=== PATIENT | male | born 1950 | race Caucasian/White ===

== ENCOUNTER 2017-10-13 10:33 | Observation (INO) | payer MEDICARE ==
[~2017-10-13] VITALS: Ht 172.7 cm; Wt 114.8 kg
[2017-10-13] VITALS (8 sets, daily range): BP systolic 126–151; BP diastolic 47–82
[2017-10-13 11:04] LABS: HEMATOCRIT 36.5 % (42.0-52.0); HEMOGLOBIN 12.1 gm/dL (14.0-18.0); MCHC 33.2 g/dL (28.0-37.0); MCV 90.3 fL (80.0-100.0); MPV 8.1 fl. (7.2-11.1); RBC 4.05 mil/uL (4.50-6.00); RDW-CV 13.2 % (10.5-14.5); WBC 10.8 thou/uL (4.0-11.0)
[2017-10-13 11:14] LABS: ANION GAP 7 mmol/L (7-16); APTT 36.3 Seconds (25.0-31.3); BUN 26 mg/dL (7-18); CALCIUM 8.9 mg/dL (8.5-10.1); CHLORIDE 102 mmol/L (98-107); CO2 27 mmol/L (21-32); CREATININE 1.3 mg/dL (0.6-1.3); GLUCOSE 154 mg/dL (70-99); POTASSIUM 4.2 mmol/L (3.5-5.1); PROTIME 10.2 Seconds (9.20-11.50); SODIUM 136 mmol/L (136-145)
[2017-10-13 11:19] LABS: ALBUMIN 3.2 g/dL (3.4-5.0); ALKALINE PHOSPHATASE 89 U/L (46-116); CHOLESTEROL 120 mg/dL (<200); HDL CHOLESTEROL 39 mg/dL (>40); LDL CHOLESTEROL 61 mg/dL (<100); SGOT 22 U/L (15-37); SGPT 14 U/L (30-65); TC:HDL 3.1 Ratio (Not establshd); TOTAL BILIRUBIN 0.4 mg/dL (<0.1-1.0); TOTAL PROTEIN 7.6 g/dL (6.4-8.2); TRIGLYCERIDE 100 mg/dL (<150); VLDL 20 mg/dL (<40)
[2017-10-13 11:24] LABS: SERUM ASSESSMENT Clear
[2017-10-13] MEDS ORDERED: LASIX 20 MG TAB20 MG PO (11:24)
[2017-10-13] MEDS ORDERED: LEVEMIR100 UNIT/1 SUBQ (11:24)
[2017-10-13] MEDS ORDERED: VICTOZA0.6 MG/0.1 SUBQ (11:24)
[2017-10-13] MEDS ORDERED: NITROGLYCERIN0.4 MG SUBLING (11:25)
[2017-10-13] MEDS ORDERED: ASPIR 8181 MG PO (11:26)
[2017-10-13] MEDS ORDERED: CRESTOR20 MG PO (11:26)
[2017-10-13] MEDS ORDERED: FLOMAX0.4 MG PO (11:26)
[2017-10-13] MEDS ORDERED: CENTRUM SILVER1 EAC2 PO (11:27)
[2017-10-13] MEDS ORDERED: NORCO 5-325 TA1 EACH PO (11:27)
[2017-10-13] MEDS ORDERED: COZAAR 25 MG TA25 M1 PO (11:28)
[2017-10-13] MEDS ORDERED: KLOR-CON 1010 MEQ PO (11:28)
[2017-10-13] MEDS ORDERED: CELEBREX 200 M200 M1 PO (11:29)
[2017-10-13] MEDS ORDERED: OMEGA-31000 M1 PO (11:30)
--- NOTE | 2017-10-13 16:30 | EKG ---
[place] [address] ELECTROCARDIOGRAM REPORT Name: CHANTAL FREITAS Room: [place] [address] ADM IN .R.#: [id number] Admission: 10/13/17 Attend Phys: Winston Gross MD Discharge: Date of : 52 Report #: [id number] THIS REPORT FOR: //name// [facility] Test Date: 2017-10-13 Test Time: 10:59:31 Pat Name: CHANTAL FREITAS Department: Room: [facility] Gender: M Mgmt Consultant: : 1950 Requested By: Winston Gross Order Number: [id number] Reading MD: Winston Gross Measurements Intervals [place] Rate: 76 P: 17 HI: 167 QRS: 6 QRSD: 83 T: 63 QT: 381 QTc: 429 Interpretive Statements Sinus rhythm No previous ECG available for comparison Electronically Signed On 10-13-2017 16:30:22 CDT by Winston Gross [email or web address] <ELECTRONICALLY SIGNED> By: Winston Gross MD, [facility] 10/13/17 1630 1059 1059 Winston Gross MD, FACC /EPI
--- NOTE | 2017-10-13 17:40 | NUR ---
PATIENT ARRIVED THIS EVENING FROM ADMINISTRATIVE OFFICE ASSISTANT PER CART. PATIENT IS ALERT AND ORIENTED X 4 ON ARRIVAL TO THE ROOM. HE DENIES CHEST PAIN. PATIENT PLACED ON TELE MONITOR AND ORIENTED TO ROOM AND PROCEDURES. ASSISTED WITH TOLIETING AND IV FLUIDS CONTINUED FROM ADMINISTRATIVE OFFICE ASSISTANT. TELE SHOWS NSR. RIGHT RADIAL SITE INTACT. FULL PRESSURE ON FROM ADMINISTRATIVE OFFICE ASSISTANT. SMALL AMOUNT OF DRIED BLOOD NOTED AROUND BAND ON ARRIVAL TO THE ROOM. PATIENT ORDERED DIET. BLOOD SUGAR OBTAINED PRIOR TO PATIENT RECIEVING TRAY RESULTS 200. PATIENT'S VSS AT THIS TIME.
[2017-10-14 04:00] VITALS: BP 168/51
[2017-10-14 05:26] LABS: HEMATOCRIT 32.9 % (42.0-52.0); HEMOGLOBIN 11.1 gm/dL (14.0-18.0); MCH 30.3 pg (26.0-34.0); MCHC 33.9 g/dL (28.0-37.0); MCV 89.5 fL (80.0-100.0); MPV 8.8 fl. (7.2-11.1); RBC 3.67 mil/uL (4.50-6.00); WBC 11.4 thou/uL (4.0-11.0)
[2017-10-14 05:51] LABS: ALBUMIN 2.7 g/dL (3.4-5.0); ALKALINE PHOSPHATASE 77 U/L (46-116); ANION GAP 8 mmol/L (7-16); BUN 22 mg/dL (7-18); CALCIUM 8.1 mg/dL (8.5-10.1); CHLORIDE 105 mmol/L (98-107); CO2 26 mmol/L (21-32); CREATININE 1.3 mg/dL (0.6-1.3); GLUCOSE 185 mg/dL (70-99); POTASSIUM 4.6 mmol/L (3.5-5.1); SGOT 16 U/L (15-37); SGPT 25 U/L (30-65); SODIUM 139 mmol/L (136-145); TOTAL BILIRUBIN 0.3 mg/dL (<0.1-1.0); TROPONIN-I LEVEL <0.06 ng/mL (<0.06)
--- NOTE | 2017-10-14 06:42 | NUR ---
PT IS ABLE TO COMMUNICATE HIS NEEDS TO STAFF EFFECTIVELY. HE HAS DENIED THE NEED FOR PAIN MEDICATION UP TO THIS TIME. RIGHT RADIAL CATH SIGHT SHOWS NO OBSERVABLE EVIDENCE OF HEMATOMA; DRESSING HAS SOME BLOOD, BUT HAS REMAINED UNCHANGED OVERNIGHT.
[2017-10-14 08:00] VITALS: BP 133/66
[2017-10-14 09:35] VITALS: BP 136/76
[2017-10-14] MEDS ORDERED: BRILINTA90 MG PO (11:20)
[2017-10-14 11:22] VITALS: BP 136/76
--- NOTE | 2017-10-14 11:53 | NUR ---
ASSUMED CARE OF PT THIS AM ASSESSED AND DOCUMENTED. PT D/C'D TO HOME. ALL CONSULTS OK WITH D/C. EDUCATION GIVEN RE FOLLOW-UP, MEDICATIONS, AND DR ORDERS. SCRIPTS GIVEN. IV AND CARDIAC D/C'D. ALL BELONGINGS PACKED UP AND LEFT WITH PT ACCOMPANIED BY STAFF AND PT'S .
--- NOTE | 2017-10-14 15:08 | EKG ---
[place] [address] ELECTROCARDIOGRAM REPORT Name: CHANTAL FREITAS [address]#: [id number] Admission: 10/13/17 Attend Phys: Winston Gross MD Discharge: 10/14/17 Date of : 52 Report #: [id number] THIS REPORT FOR: //name// [facility] Test Date: 2017-10-14 Test Time: 04:33:11 Pat Name: CHANTAL FREITAS Department: Room: [facility] Gender: M Medical Claims Assistant: [facility] : 1950 Requested By: Ephraim Ortega Order Number: [id number] Celeste MD: Ephraim Ortega Measurements Intervals [place] Rate: 83 P: 43 RI: 181 QRS: 3 QRSD: 86 T: 60 QT: 376 QTc: 442 Interpretive Statements Sinus rhythm Compared to ECG 10/13/2017 10:59:31 No significant changes Electronically Signed On 10-14-2017 15:08:43 CDT by Ephraim Ortega [email or web address] <ELECTRONICALLY SIGNED> By: Ephraim Ortega MD, [facility] 10/14/17 1508 0433 0433 Ephraim Ortega MD, FAC /EPI
--- NOTE | 2017-10-14 16:01 | CARD ---
[address] [address] CARDIAC CATH REPORT Name: CHANTAL FREITAS Room: [address] Dave Pool#: [id number] Admission: 10/13/17 Attend Phys: Winston Gross MD Discharge: 10/14/17 Date of : 52 Report #: [id number] THIS REPORT FOR: //name// APPROVED REPORT Study performed: 10/13/2017 13:07:46 Patient Details Patient Status: Out-Patient Room #: The patient is a 67 year-old male Event Personnel Winston Gross Content Strategy Lead, Yani Hopson RN RN, Christina Nguyen Childers, James Monitor, Ephraim Ortega Content Strategy Lead Procedures Performed Left heart catheterization selective coronary arteriography and percutaneous coronary intervention with deployment of sequential drug-eluting stents at the site of 90% tubular mid LAD stenosis Indication Unstable angina Risk Factors Hypercholesterolemia, Hypertension Admission/Lab Medications/Medications given during procedure Aspirin, Platelet Aff. Inhib., Angiomax bolus and infusion Procedure Narrative The patient was brought electively to the Cardiac Catheterization Laboratory and was prepped and draped in a sterile manner. The right wrist was infiltrated with 1% Lidocaine subcutaneous anesthesia. A Slender Glidesheath sheath was inserted into the . Coronary angiography was performed using coronary diagnostic catheters. The right coronary system was accessed and visualized with a [place] 4.0 1th1QJX 6fr catheter. The left coronary system was accessed and visualized with a [place] 4.0 6fr catheter. The left ventricle was accessed and visualized with a 3DRC 6fr catheter. Left ventricular/Aortic Valve gradient assessed via catheter pullback. Closure device was deployed with a Fr Vasc-Band Reg 24cm. The patient tolerated the procedure well and there were no complications [place] [address] CARDIAC CATH REPORT Name: CHANTAL FREITAS Room: [address] GatitoRMelissa#: [id number] Admission: 10/13/17 Attend Phys: Winston Gross MD Discharge: 10/14/17 Date of : 52 Report #: [id number] Intraoperative Conscious Sedation Sedation start time: 1403 Case end Time: 1520 Fentanyl 25 mcg Versed 3 mg Fluoro Time: 28.1 minutes Dose: DAP [id number] cGycm2 4378 mGy Contrast Type and Amount: Visipaque 470 ml Diagnostic Cath Left Main 20% distal narrowing LAD 90% tubular mid LAD stenosis with 50% distal narrowing Circumflex 40% proximal and mid vessel narrowing and 50% narrowing of the proximal first marginal branch Right Coronary Dominant vessel with 40% mid vessel narrowing and 60% tubular narrowing of the posterior descending branch in its proximal portion Left Ventriculography Left Ventriculography was not performed. IVUS Findings NC Trek RX 2.25x12 Hemodynamics The aortic pressure is 119/70 mmHg with a mean of 97 mmHg. The left ventricular pressure is 125/55 mmHg with a mean of mmHg. The left ventricular end diastolic pressure is 15 mmHg. There was no gradient across the aortic valve upon pullback. PCI Technique Lesion Anticoagulation was achieved with Angiomax. Patient was preloaded with Angiomax IV 16.5 ml. Percutaneous coronary intervention was performed on the mid left anterior descending artery segment. The lesion stenosis prior to intervention was 90% with ANABEL 3 flow. A 6F XB LAD 3.5 Guide Catheter was used to engage the ostium. A IG: ProwaterFlex 180CM Interventional Guidewire was used to cross the lesion. BALLOON DILATION A Balloon catheter Trek RX 2.25 X 12 was inserted and inflated up to 10.00atm for 8seconds. Additional Inflation: 12.00atm for 10seconds. Additional Inflation: 10.00atm for 12seconds. [place] [address] CARDIAC CATH REPORT Name: CHANTAL FREITAS Room: [address] Dave Pool#: [id number] Admission: 10/13/17 Attend Phys: Winston Gross MD Discharge: 10/14/17 Date of : 52 Report #: [id number] STENT DEPLOYMENT A drug-eluting stent Xience Alpine RX 2.25X23, 2.25x8, 2.25x12 was inserted and inflated up to 10, 9, 12atm for seconds. Final angiography reveals 10 % stenosis with ANABEL 3 flow. BALLOON DILATION A Balloon catheter NC Trek RX 2.25x12 was inserted and inflated up to 14.00atm for 14seconds. Additional Inflation: 8.00atm for 10seconds. STENT DEPLOYMENT A stent Xience Alpine RX 2.25X23 was inserted and inflated up to 9.00atm for 16seconds. Stent Deployment A stent Xience Alpine RX 2.25X08 was inserted and inflated up to 8atm for 17seconds. Additional Inflation: 10atm for 11seconds. STENT DEPLOYMENT A stent Xience Alpine RX 2.25X12 was inserted and inflated up to 8.00atm for 14seconds. Additional Inflation: 11.00atm for 12seconds. Additional Inflation: 11.00atm for 11seconds. Conclusion #1 significant coronary artery disease characterized by the following: A 20% distal left main coronary artery narrowing, B 90% mid LAD stenosis with 50% distal LAD narrowing, C nondominant circumflex with 40% proximal and mid vessel narrowing with 50% proximal first marginal narrowing D dominant right coronary artery with 40% mid vessel narrowing and 60% narrowing of proximal portion of the posterior descending branch #2 mild elevation of left ventricular end-diastolic pressure at rest #3 successful percutaneous coronary intervention with deployment of 3 drug-eluting stents in the mid LAD with 10% residual narrowing following stent deployment and ANABEL-3 flow [place] [address] CARDIAC CATH REPORT Name: CHANTAL FREITAS Room: [address] Dave Pool#: [id number] Admission: 10/13/17 Attend Phys: Winston Gross MD Discharge: 10/14/17 Date of : 52 Report #: [id number] Recommendations Cardiac Risk Reduction Program Aggressive Medical Therapy Medications Administered Aspirin (any) Ticagrelor Diagnostic Cath Approved by: Winston Gross MD Date/Time: 10/14/17 at 1600 hrs. <ELECTRONICALLY SIGNED> By: Ephraim Ortega MD, FACC 10/14/17 1601 160 160Joyobany Ortega MD, FACC /INF
--- NOTE | 2017-10-15 15:02 | D ---
[address] [address] DISCHARGE SUMMARY Name: FORTINOCHANTAL Room: [address] Dave Pool#: [id number] Admission: 10/13/17 Attend Phys: Winston Gross MD Discharge: 10/14/17 Date of : 52 Report #: [id number] THIS REPORT FOR: //name// [facility]: [facility] DATE OF SERVICE: 10/14/2017 FINAL DISCHARGE DIAGNOSES: 1. Unstable angina. 2. Dyspnea on exertion. 3. Mild aortic valve stenosis. 4. Peripheral arterial disease. 5. Type 2 diabetes. 6. Hypertension. 7. Exogenous obesity. PROCEDURES: On 10/13/2017 -- left heart catheterization, selective coronary arteriography and percutaneous coronary intervention with deployment of three sequential drug-eluting stents in the mid left anterior descending coronary artery. The patient is a very pleasant 67-year-old male who presented with exertional angina following an unstable pattern. Given his risk factors, Dr. Gross elected to proceed with cardiac catheterization, which revealed a tubular 80-90% mid LAD stenosis with a 50-60% distal right coronary narrowing. I elected to deploy three sequential drug-eluting stents in the mid LAD with 0% residual narrowing following stent deployment. The patient did well post-procedurally and there was good hemostasis at the right radial site of catheterization. LABORATORY DATA: On 10/14 revealed sodium 139, potassium 4.6, BUN 22 and creatinine 1.3. Hemoglobin 11.1 and white blood cell count 11,400 with 276,000 platelets. Troponin less than 0.06. Cholesterol 120, LDL 61, HDL 39 and triglycerides 100. The patient was discharged home on the following medications: Aspirin 81 mg daily, celecoxib or Celebrex 200 mg daily, furosemide 20 mg daily, Levemir insulin 23 units subcutaneously daily, Victoza 1.8 mg subcutaneously daily, losartan 25 mg daily, multivitamin with minerals 1 tablet daily, omega 3 fatty acids 1000 mg daily, potassium chloride 10 mEq daily, rosuvastatin 20 mg daily, tamsulosin 0.4 mg daily, ticagrelor 90 mg b.i.d. with a 180 mg loading dose given periprocedurally, and p.r.n. sublingual [place] [address] DISCHARGE SUMMARY Name: FORTINOCHANTAL DOMINGUEZ Room: [address] Dave Pool#: [id number] Admission: 10/13/17 Attend Phys: Winston Gross MD Discharge: 10/14/17 Date of : 52 Report #: [id number] The patient will be seen by nurse practitioner, Diana Peralta on 11/06 at [address] subsequently [address] Gross. <ELECTRONICALLY SIGNED> By: Ephraim Ortega MD, [facility] 10/15/17 1502 0953 1021Joyobany Ortega MD, [facility] /nt
--- NOTE | 2017-10-15 16:08 | H ---
[place] [address] HISTORY AND PHYSICAL Name: CHANTAL FREITAS Room: [address] Dave M.R.#: [id number] Admission: 10/13/17 Attend Phys: Winston Gross MD Discharge: 10/14/17 Date of : 52 Report #: [id number] THIS REPORT FOR: //name// CC: FAM unknown Winston Gross DATE OF SERVICE: 10/13/2017 PRIMARY CARE PHYSICIAN: Dr. Lalo Kim. ARCADE GAMES MECHANIC: Winston Gross MD [facility] CHIEF COMPLAINT: 1. Shortness of breath. 2. Abnormal stress test. HISTORY OF PRESENT ILLNESS: The patient is a 67-year-old man with shortness of breath, had been previously evaluated for stress induced ischemia with a pharmacologic stress test at [facility] which was negative for ischemia, but he has had continued symptoms of chest discomfort. He has a known history of mild aortic valve stenosis on an echocardiogram performed earlier this year. He has preserved LV function. There was a concern he may have a false negative stress test, so a further evaluation with a cardiac catheterization is going to be undertaken. PAST MEDICAL HISTORY: Chronic diastolic heart failure, mild aortic valve stenosis, normal LV function, history of peripheral vascular disease, hypertension, hyperlipidemia. HOME MEDICATIONS: Include aspirin, Plavix, Lasix 20 mg daily, hydrocodone p.r.n., insulin for diabetes mellitus, Victoza, lisinopril 5 mg daily, Toprol-XL 25 mg daily, Bystolic 2.5 mg daily, nitroglycerin, rosuvastatin 20 mg daily, Tamsulosin 0.4 mg daily and multivitamins. SOCIAL HISTORY: He is a nonsmoker. PRIOR REMOTE SURGERIES: Include lap hernia repair and gastric banding. FAMILY HISTORY: Positive for heart disease. REVIEW OF SYSTEMS: CARDIAC: Positive dyspnea on exertion. No orthopnea, no PND. Positive chest discomfort. PULMONARY: No shortness of [place] [address] HISTORY AND PHYSICAL Name: CHANTAL FREITAS Room: [address]#: [id number] Admission: 10/13/17 Attend Phys: Winston Gross MD Discharge: 10/14/17 Date of : 52 Report #: [id number] RESPIRATORY: Negative. GASTROINTESTINAL: No hemoptysis, hematemesis or melena. No abdominal pain. GENITOURINARY: No dysuria or hematuria. SKIN: No rashes. GENERAL: No fevers or chills. PHYSICAL EXAMINATION: VITAL SIGNS: Blood pressure is 122/76, heart rate is 90, weight is 246 pounds. GENERAL: He is a pleasant, obese, middle-aged male. He is alert, oriented, no apparent distress. NECK: Supple. No jugular venous distention. CARDIOVASCULAR: Regular. There is a faint systolic murmur. LUNGS: Clear to auscultation. ABDOMEN: Soft, nontender. EXTREMITIES: There is no peripheral edema. NEUROLOGIC: There are no focal deficits. LABORATORY DATA: Sinus rhythm, normal ST segments. IMPRESSION: 1. Dyspnea. 2. Mild aortic valve stenosis. 3. Peripheral vascular disease. 4. Diabetes. 5. Hypertension. The patient has continued symptoms of shortness of breath, which are concerning for angina. I have arranged for further evaluation with a diagnostic cardiac catheterization given his numerous cardiovascular risk factors including diabetes mellitus. The risks and benefits were described to the patient. The patient elects to proceed. <ELECTRONICALLY SIGNED> By: Winston Gross MD, FACC 10/15/17 1608 1526 2119Winston Gross MD, FACC /nt
== END 2017-10-14 11:55 | disposition home or self-care (01) ==
LOC: M.CL 10:33 → M.2W 15:09 → M.TBA-ER 15:09 → M.2W 16:45
PROVIDERS: Internal Medicine; ADMIT Internal Medicine Cardiovascular Disease
DX: I20.0 Unstable angina (principal); I35.0 Nonrheumatic aortic (valve) stenosis; I11.0 Hypertensive heart disease with heart failure; I50.32 Chronic diastolic (congestive) heart failure; E11.51 Type 2 diabetes mellitus with diabetic peripheral angiopathy without gangrene; E78.5 Hyperlipidemia, unspecified; E66.09 Other obesity due to excess calories; Z68.38 Body mass index [BMI] 38.0-38.9, adult; Z82.49 Family history of ischemic heart disease and other diseases of the circulatory system

== ENCOUNTER → 2018-01-01 | Outpatient (CLI) | payer MEDICARE ==
[~2018-01-01] VITALS: Ht 172.7 cm; Wt 111.1 kg
[~2018-01-01] MED LIST: ASPIR 8181 MG PO; ATIVAN0.5 MG PO; BRILINTA90 MG PO; CELEBREX 200 M200 M1 PO; CENTRUM SILVER1 EAC2 PO; COZAAR 25 MG TA25 M1 PO; CRESTOR20 MG PO; CULTURELLE1 EACH PO; FLOMAX0.4 MG PO; IMDUR 30 MG TAB30 M1 PO; KLOR-CON 1010 MEQ PO; L-LYSINE600 MG PO; LASIX 20 MG TAB20 MG PO; LEVEMIR100 UNIT/1 SUBQ; LEVSIN0.125 MG PO; NITROGLYCERIN0.4 MG SUBLING; NORCO 5-325 TA1 EACH PO; OMEGA-31000 M1 PO; PLAVIX 75 MG TA75 MG PO; PROSCAR 5MG TABL5 MG PO; TOPROL XL25 MG PO; VICTOZA0.6 MG/0.1 SUBQ; ZINC50 M1 PO
[2018-01-01 10:04] VITALS: BP 110/51
== END ==
LOC: M.INT 09:14
DX: I73.9 Peripheral vascular disease, unspecified (principal); I35.0 Nonrheumatic aortic (valve) stenosis; I10 Essential (primary) hypertension; E78.00 Pure hypercholesterolemia, unspecified; Z95.5 Presence of coronary angioplasty implant and graft

== ENCOUNTER → 2018-01-05 | Outpatient (CLI) | payer MEDICARE | LOC: M.CT 07:18 → M.LAB 07:30 → M.CT 08:30 | DX: I73.9 Peripheral vascular disease, unspecified (principal); N28.1 Cyst of kidney, acquired ==

== ENCOUNTER 2018-04-12 00:48 | Inpatient (IN) | payer MEDICARE ==
[~2018-04-12] VITALS: Ht 172.7 cm; Wt 108.4 kg
[2018-04-12] VITALS (7 sets, daily range): BP systolic 125–147; BP diastolic 62–74
[~2018-04-12 00:48] MED LIST changes: -ATIVAN0.5 MG PO; -CULTURELLE1 EACH PO; -IMDUR 30 MG TAB30 M1 PO; -L-LYSINE600 MG PO; -LEVSIN0.125 MG PO; -PLAVIX 75 MG TA75 MG PO; -PROSCAR 5MG TABL5 MG PO; -TOPROL XL25 MG PO; -ZINC50 M1 PO
[2018-04-12 01:11] LABS: ABSOLUTE BASOPHILS 0.1 thou/uL (0.0-0.2); ABSOLUTE EOSINOPHILS 0.3 thou/uL (0.0-0.7); ABSOLUTE LYMPHOCYTES 1.9 thou/uL (0.8-5.3); ABSOLUTE MONOCYTES 1.1 thou/uL (0.0-1.2); ABSOLUTE NEUTROPHILS 7.1 thou/uL (1.6-8.1); BASOPHILS 0.8 %; EOSINOPHILS 2.5 %; HEMATOCRIT 32.8 % (42.0-52.0); HEMOGLOBIN 10.7 gm/dL (14.0-18.0); LYMPHOCYTES 17.9 %; MCH 28.3 pg (26.0-34.0); MCHC 32.6 g/dL (28.0-37.0); MCV 86.7 fL (80.0-100.0); MONOCYTES 10.6 %; MPV 8.9 fl. (7.2-11.1); NUCLEATED RBCS 0 /100WBC; PLATELET COUNT* 265 thou/uL (150-400); POLYS 68.2 %; RBC 3.78 mil/uL (4.50-6.00); RDW-CV 14.8 % (10.5-14.5); WBC 10.5 thou/uL (4.0-11.0)
[2018-04-12 01:18] LABS: ANION GAP 7 mmol/L (7-16); BUN 25 mg/dL (7-18); CALCIUM 8.5 mg/dL (8.5-10.1); CHLORIDE 101 mmol/L (98-107); CO2 27 mmol/L (21-32); CREATININE 1.6 mg/dL (0.6-1.3); GLUCOSE 384 mg/dL (70-99); SODIUM 135 mmol/L (136-145)
[2018-04-12] MEDS ORDERED: L-LYSINE600 MG PO (01:22)
[2018-04-12] MEDS ORDERED: LEVSIN0.125 MG PO (01:22)
[2018-04-12] MEDS ORDERED: PLAVIX 75 MG TA75 MG PO (01:22)
[2018-04-12] MEDS ORDERED: IMDUR 30 MG TAB30 M1 PO (01:23)
[2018-04-12] MEDS ORDERED: PROSCAR 5MG TABL5 MG PO (01:23)
[2018-04-12] MEDS ORDERED: ZINC50 M1 PO (01:23)
[2018-04-12] MEDS ORDERED: TOPROL XL25 MG PO (01:23)
[2018-04-12] MEDS ORDERED: CULTURELLE1 EACH PO (01:24)
[2018-04-12] MEDS ORDERED: ATIVAN0.5 MG PO (01:24)
[2018-04-12 01:28] LABS: ALBUMIN 2.9 g/dL (3.4-5.0); ALKALINE PHOSPHATASE 103 U/L (46-116); LIPASE 116 U/L (73-393); MAGNESIUM 1.8 mg/dL (1.8-2.4); NT-PRO BRAIN NAT PEPTIDE 225 pg/mL (<300); SGOT 39 U/L (15-37); SGPT 52 U/L (30-65); TOTAL BILIRUBIN 0.1 mg/dL (<0.1-1.0); TOTAL PROTEIN 6.8 g/dL (6.4-8.2); TROPONIN-I LEVEL <0.06 ng/mL (<0.06)
--- NOTE | 2018-04-12 10:11 | EKG ---
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: Augie CUENCA : 1950 Requested By: Georges Kelley Order Number: [id number] MD: Franck Higuera Measurements Intervals [place] Rate: 100 P: 54 NC: 183 QRS: 4 QRSD: 82 T: 87 QT: 332 QTc: 429 Interpretive Statements Sinus tachycardia Atrial premature complexes Abnormal R-wave progression, early transition Borderline repolarization abnormality Compared to ECG 10/14/2017 04:33:11 Atrial premature complex(es) now present Sinus rhythm no longer present Electronically Signed On 04-12-2018 10:10:56 CDT by Franck Higuera [email or web address] <ELECTRONICALLY SIGNED> By: Franck Higuera MD, FAC 04/12/18 1010 0053 0053 Franck Higuera MD, [facility] /EPI
[2018-04-12 10:28] LABS: ANION GAP 8 mmol/L (7-16); BUN 25 mg/dL (7-18); CALCIUM 8.4 mg/dL (8.5-10.1); CHLORIDE 103 mmol/L (98-107); CHOLESTEROL 106 mg/dL (<200); CO2 27 mmol/L (21-32); CREATININE 1.3 mg/dL (0.6-1.3); GLUCOSE 150 mg/dL (70-99); HDL CHOLESTEROL 33 mg/dL (>40); LDL CHOLESTEROL 58 mg/dL (<100); POTASSIUM 3.9 mmol/L (3.5-5.1); SODIUM 138 mmol/L (136-145); TC:HDL 3.2 Ratio (Not establshd); TRIGLYCERIDE 79 mg/dL (<150); VLDL 16 mg/dL (<40)
[2018-04-12 10:30] LABS: SERUM ASSESSMENT Clear
--- NOTE | 2018-04-12 13:40 | 2DMMODE ---
[place] [address] 2 D/M-MODE ECHOCARDIOGRAM Name: CHANTAL FREITAS Room: [facility] [place] Karis#: [id number] Admission: 04/12/18 Attend Phys: Arnaldo Alexandre, Discharge: Date of : 52 Date of Service: 04/12/18 1340 Report #: [id number] THIS REPORT FOR: //name// APPROVED REPORT Study performed: 04/12/2018 12:05:29 EXAM: Limited 2D, Doppler, and color-flow Echocardiogram Patient Location: In-Patient Room #: [facility] Status: routine BSA: 2.20 HR: 91 bpm BP: 129/74 mmHg Rhythm: NSR Other Information Study Quality: Good Indications Murmur 2D Dimensions IVSd: 8.80 (7-11mm) LVOT Diam: 20.23 (18-24mm) LVDd: 50.85 mm PWd: 9.18 (7-11mm) LVDs: 31.62 (25-40mm) Aortic Valve AoV Peak Lito.: 2.99 m/s AO Peak Gr.: 35.67 mmHg LVOT Max P.49 mmHg AO Mean Gr.: 21.62 mmHg LVOT Mean P.96 mmHg LVOT Max V: 0.93 m/s AO V2 VTI: 62.14 cm LVOT Mean V: 0.65 m/s DEBI (VTI): 1.17 cm2 LVOT V1 VTI: 22.53 cm Pulmonary Valve PV Peak Lito.: 1.49 m/s PV Peak Gr.: 8.89 mmHg Left Ventricle The left ventricle is normal size. There is normal left ventricular wall thickness. The left ventricular systolic function is normal. The left ventricular ejection fraction is within the normal range. LVEF is 60-65%. [place] [address] 2 D/M-MODE ECHOCARDIOGRAM Name: FORTINOCHANTAL Evita Room: [facility] [place] .R.#: [id number] Admission: 04/12/18 Attend Phys: Arnaldo Alexandre, Discharge: Date of : 52 Date of Service: 04/12/18 1340 Report #: [id number] The right ventricle is normal size. The right ventricular systolic function is normal. Atria The left atrium size is normal. The right atrium size is normal. Aortic Valve Moderate to severe aortic valve sclerosis. No aortic regurgitation is present. Moderate aortic stenosis. Mitral Valve The mitral valve is normal in structure. Mild mitral annular calcification. There is no mitral valve regurgitation noted. No evidence of mitral valve stenosis. Tricuspid Valve The tricuspid valve is normal in structure. There is no tricuspid valve regurgitation noted. Pulmonic Valve The pulmonary valve is normal in structure. There is no pulmonic valvular regurgitation. Great Vessels The aortic root is normal in size. Pericardium There is no pericardial effusion. <Conclusion> LVEF is 60-65%. Moderate aortic stenosis. <ELECTRONICALLY SIGNED> By: Franck Higuera MD, FACC 04/12/18 1340 1340 1340 Franck Higuera MD, FACC /INF
[2018-04-13] VITALS (12 sets, daily range): BP systolic 114–159; BP diastolic 52–95
[2018-04-14] VITALS: BP 130/62
[2018-04-14 04:00] VITALS: BP 112/61
[2018-04-14 05:40] LABS: HEMATOCRIT 36.5 % (42.0-52.0); HEMOGLOBIN 11.8 gm/dL (14.0-18.0); MCH 28.1 pg (26.0-34.0); MCHC 32.4 g/dL (28.0-37.0); MCV 86.6 fL (80.0-100.0); MPV 9.1 fl. (7.2-11.1); RBC 4.21 mil/uL (4.50-6.00); RDW-CV 14.8 % (10.5-14.5)
[2018-04-14 05:58] LABS: CREATININE 1.3 mg/dL (0.6-1.3)
[2018-04-14 08:00] VITALS: BP 128/71
[2018-04-14 10:23] VITALS: BP 159/69
--- NOTE | 2018-04-14 10:51 | EKG ---
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1950 Requested By: Franck Higuera Order Number: [id number] Reading MD: Franck Higuera Measurements Intervals [place] Rate: 89 P: 30 DC: 182 QRS: -5 QRSD: 78 T: 62 QT: 352 QTc: 429 Interpretive Statements Sinus rhythm Probable left atrial enlargement Abnormal R-wave progression, early transition Probable left ventricular hypertrophy with repolarization change Compared to ECG 04/12/2018 00:53:09 Sinus tachycardia no longer present Atrial premature complex(es) no longer present Electronically Signed On 04-14-2018 10:51:35 CDT by Franck Higuera [email or web address] <ELECTRONICALLY SIGNED> By: Franck Higuera MD, FAC 04/14/18 1051 1526 1526 Franck Higuera MD, [facility] /EPI
--- NOTE | 2018-04-14 11:05 | EKG ---
[place] [address] ELECTROCARDIOGRAM REPORT Name: CHANTAL FREITAS Room: [address] ADM IN M.R.#: [id number] Admission: 04/12/18 Attend Phys: Arnaldo Alexandre MD Discharge: Date of : 52 Report #: [id number] THIS REPORT FOR: //name// [facility] Test Date: 2018-04-14 Test Time: 08:20:02 Pat Name: CHANTAL FREITAS Department: Room: [address] Gender: M Dampener: : 1950 Requested By: Franck Higuera Order Number: [id number] Celeste MD: Franck Higuera Measurements Intervals [place] Rate: 90 P: 21 ID: 176 QRS: -4 QRSD: 78 T: 70 QT: 348 QTc: 426 Interpretive Statements Sinus rhythm Abnormal R-wave progression, early transition Left ventricular hypertrophy Electronically Signed On 04-14-2018 11:04:50 CDT by Franck Higuera [email or web address] <ELECTRONICALLY SIGNED> By: Franck Higuera MD, [facility] 04/14/18 1104 819 9 Franck Higuera MD, FACC /EPI
[2018-04-14] MEDS ORDERED: NORCO 5-325 TA1 EACH PO (11:42)
[2018-04-14 11:43] VITALS: BP 159/69
[2018-04-14 12:35] VITALS: BP 159/69
--- NOTE | 2018-04-14 16:37 | CARD ---
[address] [address] CARDIAC CATH REPORT Name: CHANTAL FREITAS Room: 207-[facility] .R.#: [id number] Admission: 04/12/18 Attend Phys: Arnaldo Alexandre MD Discharge: 04/14/18 Date of : 52 Report #: [id number] THIS REPORT FOR: //name// ADDENDUM APPROVED REPORT Study performed: 04/13/2018 12:03:10 Patient Details Patient Status: In-Patient Room #: 207 The patient is a 68 year-old male Event Personnel Winston Gross It Admin, Elena Geronimo Parts Specialist, Christina Nguyen Monitor, Justino Mendez Blick, David Vice President Payer, Lynette Tran RN Parts Specialist Procedures Performed Art Access - R femoral artery* Art Access - R femoral artery* , Selective Right and Left Coronary AngiographyLeft Heart Cath w/LT VGram [id number] [facility] w/wo Plasty Single LAD [id number] Indication Chest pain Risk Factors Arterial Hypertension, Hypercholesterolemia Previous Procedures/Diagnoses Previous PCI Admission/Lab Medications/Medications given during procedure Heparin Unfract. Procedure Narrative The patient was brought electively to the Cardiac Catheterization Laboratory and was prepped and draped in a sterile manner. The right femoral was infiltrated with 2% Lidocaine subcutaneous anesthesia. A New Freedom 6 FR sheath was inserted into the right femoral artery. Coronary angiography was performed using coronary diagnostic catheters. The right coronary system was accessed and visualized with a 6fr JR 4 catheter. The left coronary system was accessed and visualized with a 6fr JL 4 catheter. The left ventricle was accessed and visualized with a 6fr pigtail catheter. Left ventricular/[place] [address] CARDIAC CATH REPORT Name: CHANTAL FREITAS Room: [address]#: [id number] Admission: 04/12/18 Attend Phys: Arnaldo Alexandre MD Discharge: 04/14/18 Date of : 52 Report #: [id number] Valve gradient assessed via catheter pullback. Closure device was deployed with a 6 Fr Angioseal STS 6Fr. The patient tolerated the procedure well and there were no complications associated with the procedure. There was no hematoma. Intraoperative Conscious Sedation Sedation start time: 12:42 Case end Time: 13:54 Fentanyl 50 mcg Versed 3 mg Fluoro Time: 3.6 minutes Dose: DAP 38212 cGycm2 1324.96 mGy Contrast Type and Amount: Visipaque 260 ml Coronary Angiography The patient's coronary anatomy is right dominant. Diagnostic Cath Left Main normal LAD long proximal stented region with focal 80% re stenosis mid body, small vessel at the apex with 50-70% diffuse disease Diagonal 1 ostial 80% jailed Circumflex proximal 60% OM1 small OM2 large proxim 50% OM3 normal Right Coronary mid 30% R PDA medium sized proximal 70-80% RPLV large normal Left Ventriculography Left Ventriculography was not performed. The left ventricle is normal in size with contractility. Hemodynamics The aortic pressure is 132/63 mmHg with a mean of mmHg. The left ventricular pressure is 161/4 mmHg with a mean of mmHg. The left ventricular end diastolic pressure is 18 mmHg. There was no gradient across the aortic valve upon pullback. Pullback from the left ventricle to the aorta revealed no gradient across the aortic valve. PCI Technique Lesion Anticoagulation was achieved with Heparin. pt was chronically on plavix Percutaneous coronary intervention was performed on the mid left anterior descending artery segment. The lesion stenosis [place] [address] CARDIAC CATH REPORT Name: CHANTAL FREITAS Room: [address]#: [id number] Admission: 04/12/18 Attend Phys: Arnaldo Alexandre MD Discharge: 04/14/18 Date of : 52 Report #: [id number] intervention was 80% with ANABEL 3 flow. A 6F XB LAD 4.0 Guide Catheter was used to engage the lm ostium. A IG: BMW 190cm Interventional Guidewire was used to cross the lesion. BALLOON DILATION A Balloon catheter Trek RX 2.5 X 8 was inserted and inflated up to 12.00atm for 10seconds. Repeat angiography revealed the following post-dilatation results: 30% stenosis. STENT DEPLOYMENT A drug-eluting stent Josh RX Stent 2.5X12mm was inserted and inflated up to 12.00atm for 12seconds. Repeat angiography revealed the following post-stent deployment results: 0% stenosis. Additional Inflation: 15.00atm for 10seconds. Final angiography reveals 0 % stenosis with ANABEL 3 flow. Conclusion 1. 80% discrete restenosis in the mid portion of a long stent in the mid lad 2. successful placement of a new stent in the previously stented mid lad Recommendations Cardiac Rehabilitation Referral Aggressive Medical Therapy Diagnostic Cath Approved by: Winston Gross MD Date/Time: <ELECTRONICALLY SIGNED> By: Winston Gross MD, [facility] 04/14/18 1637 [id number] Gross MD, [facility] /INF
--- NOTE | 2018-04-19 09:11 | CON ---
[address] [address] CONSULTATION Name: CHANTAL FREITAS Room: [address] IN M.R.#: [id number] Admission: 04/12/18 Attend Phys: Arnaldo Alexandre MD Discharge: 04/14/18 Date of : 52 Report #: [id number] THIS REPORT FOR: //name// CC: Arnaldo Zhang DATE OF SERVICE: 04/12/2018 PRIMARY SHEETFED PRESS OPERATOR: Winston Gross MD [facility]. PRIMARY CARE DOCTOR: Lalo Kim MD. CHIEF COMPLAINT: Chest pain. HISTORY OF PRESENT ILLNESS: The patient is a 68-year-old man with a history of prior PCI to his LAD in September. Over the last month or so, he had been having chest discomfort and it has been partially relieved with nitroglycerin. The nuclear stress test, which was performed as an outpatient demonstrate a subtle anterior defect in his PCI was to his LAD. He also has a history of mild aortic valve stenosis. He had an episode of chest discomfort and took 3 nitroglycerin for it to resolve and since it lasted over 30 minutes, he went to the emergency room for an ECG and which demonstrates some nonspecific ST segment abnormalities, but no diagnostic abnormalities and his serial troponins overnight have been normal. This morning, he is asymptomatic. He has been compliant with his dual antiplatelet therapy, but we had to switch him from Brilinta to Plavix because of bleeding. He has been compliant with his Plavix and his bleeding resolved. He denies orthopnea or PND. He denies any symptoms necessarily reproduced with GI symptoms. He denies palpitations or heart racing and presents in a sinus rhythm. PAST MEDICAL HISTORY: PCI with 3 drug-eluting stents in the mid LAD, history of hyperlipidemia, moderate aortic valve stenosis, hypertension, hyperlipidemia, chronic diastolic heart failure. MEDICATIONS: Aspirin 81 mg daily, Celebrex p.r.n., Plavix 75 mg daily, Lasix 20 mg daily, hydrocodone p.r.n., Levemir insulin, Imdur, Victoza, Cozaar 25 mg one-half daily, metoprolol tartrate 25 mg 1 p.o. b.i.d., potassium chloride 10 mEq daily, Crestor 20 mg daily, Flomax 0.4 [place] [address] CONSULTATION Name: FORTINOCHANTAL Room: [address]#: [id number] Admission: 04/12/18 Attend Phys: Arnaldo Alexandre MD Discharge: 04/14/18 Date of : 52 Report #: [id number] SOCIAL HISTORY: He is a nonsmoker. FAMILY HISTORY: Positive for heart disease paternally. REVIEW OF SYSTEMS: GASTROINTESTINAL: No nausea or vomiting. GENITOURINARY: No dysuria or hematuria. GASTROINTESTINAL: No hematemesis or melena. CARDIOVASCULAR: Positive chest pain. No shortness of breath, no orthopnea, no PND. NEUROLOGIC: No syncope or seizures. HEMATOLOGIC: No anemia or bleeding disorders. PHYSICAL EXAMINATION: VITAL SIGNS: Blood pressure is 129/74, pulse is 92, temperature is 36.6. GENERAL: Pleasant, moderately obese, elderly male who is alert, oriented, no apparent distress. NECK: Supple, no jugular venous distention. Upstrokes are normal. LUNGS: Clear to auscultation. CARDIOVASCULAR: Regular. There is a systolic murmur 3/6. ABDOMEN: Nontender, nondistended. EXTREMITIES: No peripheral edema noted. No focal deficits. LABORATORY DATA: Troponin I is 0.04 x 3 sets. Hemoglobin is 10.7. White blood cell count is 10.5 and platelet count is 265,000. Sodium is 135, potassium is 4.0, chloride is 101, CO2 is 27, BUN is 25, creatinine is 1.6. An EKG demonstrates a sinus rhythm with a nonspecific flattening of his T-waves in leads V1 only, but no ST segment abnormalities. There is a T-wave, but it is only in lead III. Chest x-ray showed no acute cardiopulmonary abnormality. IMPRESSION: 1. Unstable angina. As the patient has continued chest pain symptoms, he was planned for an outpatient cardiac catheterization. We will plan for this to be performed tomorrow as scheduled looking at the schedule. He has a history of recent percutaneous coronary intervention to his left anterior descending coronary artery, but had continued chest discomfort symptoms, so his nuclear stress test had a very subtle abnormality and given his clinical high risk features particularly diabetes mellitus and inability to be treated with aggressive dual antiplatelet therapy, I recommended further evaluation with heart catheterization. 2. Aortic valve stenosis. Previously, this is in the moderate range. I will [address] [address] CONSULTATION Name: CHANTAL FREITAS Room: [address] IN M.R.#: [id number] Admission: 04/12/18 Attend Phys: Arnaldo Alexandre MD Discharge: 04/14/18 Date of : 52 Report #: [id number] order a limited echocardiogram. 3. Hypertension. This is stable. 4. Hyperlipidemia. Continue with his Crestor. 5. Diabetes mellitus as per our hospital colleagues. <ELECTRONICALLY SIGNED> By: Luis Bone MD, FACC 04/19/18 0911 [id number] Gross MD, FACC /nt
== END 2018-04-14 13:03 | disposition home or self-care (01) | DRG 246 ==
LOC: M.ERS 00:48 → M.2W 01:37 → M.TBA-ER 01:37 → M.2W 02:37
PROVIDERS: Emergency Medicine Emergency Medical Services; Internal Medicine Cardiovascular Disease
PROC: 027034Z Dilation of Coronary Artery, One Artery with Drug-eluting Intraluminal Device, Percutaneous Approach (ICD-10-PCS; principal; 2018-04-14)
PROC: B2111ZZ Fluoroscopy of Multiple Coronary Arteries using Low Osmolar Contrast (ICD-10-PCS; principal; 2018-04-14)
PROC: 4A023N7 Measurement of Cardiac Sampling and Pressure, Left Heart, Percutaneous Approach (ICD-10-PCS; principal; 2018-04-14)
DX: I25.110 Atherosclerotic heart disease of native coronary artery with unstable angina pectoris (principal); I50.31 Acute diastolic (congestive) heart failure; E11.00 Type 2 diabetes mellitus with hyperosmolarity without nonketotic hyperglycemic-hyperosmolar coma (NKHHC); I13.0 Hypertensive heart and chronic kidney disease with heart failure and stage 1 through stage 4 chronic kidney disease, or unspecified chronic kidney disease; N17.9 Acute kidney failure, unspecified; E44.1 Mild protein-calorie malnutrition; N18.3 Chronic kidney disease, stage 3 (moderate); I35.0 Nonrheumatic aortic (valve) stenosis; R01.1 Cardiac murmur, unspecified; E11.22 Type 2 diabetes mellitus with diabetic chronic kidney disease; E11.51 Type 2 diabetes mellitus with diabetic peripheral angiopathy without gangrene; E78.5 Hyperlipidemia, unspecified; Z87.891 Personal history of nicotine dependence; Z68.36 Body mass index [BMI] 36.0-36.9, adult; Z95.5 Presence of coronary angioplasty implant and graft; Z79.02 Long term (current) use of antithrombotics/antiplatelets; Z79.4 Long term (current) use of insulin; Z79.899 Other long term (current) drug therapy; Z82.49 Family history of ischemic heart disease and other diseases of the circulatory system